=== PATIENT | male | born 1950 | race Caucasian/White ===

== ENCOUNTER → 2023-09-04 10:29 | Outpatient (REF) | payer MEDICARE, OTHER, SELFPAY | LOC: RCS 10:29 | PROVIDERS: ATTENDING PHYSICIAN Internal Medicine Cardiovascular Disease; FAMILY PHYSICIAN Family Medicine | DX: R06.09 Other forms of dyspnea (principal); I10 Essential (primary) hypertension; E78.2 Mixed hyperlipidemia; Z82.49 Family history of ischemic heart disease and other diseases of the circulatory system; R07.89 Other chest pain | CPT/HCPCS: 93017; 93350 ==